=== PATIENT | male | born 1965 | race Caucasian/White ===

== ENCOUNTER 2017-06-07 21:39 | Emergency (ER) | payer BC ==
[~2017-06-07] VITALS: Ht 188 cm; Wt 132.0 kg
[2017-06-07] MEDS ORDERED: AMOX-580 PO (23:04)
[2017-06-07] MEDS: dexamethasone sod phosphate 10mg/ml inj IM STA (23:08)
[2017-06-07] MEDS: amox tr/potassium clavulanate 875/125mg TAB PO ONE (23:08)
[2017-06-07 23:18] VITALS: BP 142/78
== END 2017-06-07 23:24 | disposition home or self-care (01) ==
LOC: ER 21:39
DX: J32.9 Chronic sinusitis, unspecified (principal); Z79.899 Other long term (current) drug therapy; Z85.9 Personal history of malignant neoplasm, unspecified
CPT/HCPCS: 96372; 99283; J1100